=== PATIENT | female | born 1980 | race Caucasian/White ===

== ENCOUNTER 2016-08-17 | Emergency (ER) | payer BC, OTHER ==
--- NOTE | 2016-08-17 12:03 | ED ---
General Adult HPI - General Chief complaint: Back Pain/Injury Stated complaint: LOWER BACK PAIN Time Seen by Provider: 08/17/16 11:50 Source: patient, RN notes reviewed Mode of arrival: ambulatory Limitations: no limitations - History of Present Illness Initial comments: Patient 36-year-old female with significant past medical history for chronic low back pain, who presents emergency room today with chief complaint of an exacerbation of her chronic pain. She does admit to radiation down into the right hip and upper thigh. Denies any saddle anesthesia. Denies any bowel or bladder incontinence retention. Patient states the symptoms are consistent with chronic back pain that she's had in the past. Denies any specific injury or trauma. Does admit that she went back to work this past week. 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 Denies any specific injury. Patient states tried Tylenol at home relief. States she cannot take anti-inflammatories as it causes her throat to close. Patient does admit that she seen a surgeon in the past and they wanted to do surgery on her spine. Patient denies any other complaints or symptoms currently. Patient denies any recent fever, chills, shortness of breath, chest pain, abdominal pain, nausea or vomiting, dysuria or hematuria, constipation or diarrhea, headaches or visual changes, or any other complaints. - Related Data Home Medications Medication Instructions Recorded Confirmed Albuterol Inhaler [Ventolin Hfa 1 - 2 puff INHALATION RT-Q6H PRN 06/20/16 Inhaler] Previous Rx's Medication Instructions Recorded Sulfamethox-Tmp 800-160Mg [Bactrim 2 each PO Q12HR #40 tab 07/10/16 DS 800-160 mg] Cyclobenzaprine [Flexeril] 10 mg PO TID #20 tab 08/17/16 Hydrocodone/Acetaminophen [[place] 1 each PO Q6HR PRN #20 tab 08/17/16 5-325] Allergies Allergy/AdvReac Type Severity Reaction Status Date / Time morphine Allergy Severe Anaphylaxis Verified 08/17/16 11:48 NSAIDS (Non-Steroidal Allergy Severe Anaphylaxis Verified 08/17/16 11:48 Anti-Inflamma metoclopramide HCl Allergy Intermediate Anxiety Verified 08/17/16 11:48 [From Reglan] tramadol Allergy Intermediate Headache/Hi Verified 08/17/16 11:48 ves/Anxiety Review of Systems ROS Statement: Those systems with pertinent positive or pertinent negative responses have been documented in the HPI. ROS Other: All systems not noted in ROS Statement are negative. Past Medical History Past Medical History: Asthma, Osteoarthritis (OA) Additional Past Medical History / Comment(s): Hx chronic BACK PAIN. Hx of L side sciatica. Pt fell down stairs on 04/17/14 at 1800 pm. Did not lose consciousness with fall or hit her head. When she landed she had immediate increased pain in upper low back/thoracic region with pain radiating down L buttock to L toes. Pt states L leg to L foot also feels numb and tingling. History of Any Multi-Drug Resistant Organisms: None Reported Past Surgical History: Appendectomy, Cholecystectomy, Tonsillectomy Additional Past Surgical History / Comment(s): LYMPH BIOPSY 1989 and 1993 in L neck both times negative. RIGHT ARM SURGERY after open compound fx. in 1987. 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 Pt severely ill with this surgery and was on vent for 2 weeks at [facility] in [place]. Past Anesthesia/Blood Transfusion Reactions: Previous Problems w/ Anesthesia Additional Past Anesthesia/Blood Transfusion Reaction / Comment(s): Pt states liver bile duct surgery she was slow to awaken. Past Psychological History: Anxiety, Depression, Panic Disorder Additional Psychological History / Comment(s): Pt has not been diagnosed ADD or ADHD but feels as though she may have these. Smoking Status: Current every day smoker Past Alcohol Use History: None Reported Past Drug Use History: None Reported - Past Family History Mother Family Medical History: Asthma Additional Family Medical History / Comment(s): Born with double club foot. Schizophrenic,IBS. Mother is 59 yrs of age. Father Family Medical History: Cancer, Congestive Heart Failure (CHF), Diabetes Mellitus, Hyperlipidemia, Renal Disease Additional Family Medical History / Comment(s): Father from lung surgery 6 yrs ago at age 56. He had psychiatric disorders-depression/anxiety/ possible suicidal tendencies. He had drug Hx-marijuana/hash/pcp and was an alcoholic. He also had cardiomyopathy. Patient is a mother of 4. General Exam - General Exam Comments Initial Comments: General: The patient is awake and alert, in no distress, and does not appear acutely ill. Eye: Pupils are equal, round and reactive to light, extra-ocular movements are intact. No nystagmus. There is normal conjunctiva bilaterally. No signs of icterus. Ears, nose, mouth and throat: There are moist mucous membranes and no oral lesions. Neck: The neck is supple, there is no tenderness or JVD. Cardiovascular: There is a regular rate and rhythm. No murmur, rub or gallop is appreciated. Respiratory: Lungs are clear to auscultation, respirations are non-labored, breath sounds are equal. No wheezes, stridor, rales, or rhonchi. Musculoskeletal: Normal appearance of the back. No step-off deformity appreciated. Patient does have mild tenderness throughout the lumbar spine. Increased paravertebral tenderness on the right side of the lower lumbar. Strength 5/5. Sensation intact. Pulses equal bilaterally 2+. Neurological: A&O x 3. CN II-XII intact, There are no obvious motor or sensory deficits. Coordination appears grossly intact. Speech is normal. Skin: Skin is warm and dry and no rashes or lesions are noted. Psychiatric: Cooperative, appropriate mood & affect, normal judgment. Limitations: no limitations Course Vital Signs 08/17/16 11:43 Temperature 97.1 F L Pulse Rate 81 Respiratory 18 Rate Blood Pressure 118/68 O2 Sat by Pulse 99 Oximetry Medical Decision Making - Medical Decision Making Patient will be discharged home with short prescription of pain medication and muscle laxer. Advised to follow-up with the family doctor and surgeon. Advised that medications may make her drowsy. Advised to return for any other concerns. Disposition Clinical Impression: Acute exacerbation of chronic low back pain Disposition: HOME SELF-CARE Condition: Good Instructions: Chronic Back Pain (ED) Additional Instructions: Please use medication as discussed. Please be aware that medications may make you drowsy. Please follow-up with family doctor in the next 2 days of symptoms have not improved. Please return to emergency room if the symptoms increase or worsen or for any other concerns. Prescriptions: Cyclobenzaprine [Flexeril] 10 mg PO TID #20 tab Hydrocodone/Acetaminophen [[place] 5-325] 1 each PO Q6HR PRN #20 tab PRN Reason: Pain Time of Disposition: 12:01
== END 2016-08-17 12:15 | disposition home or self-care (01) ==
CPT/HCPCS: 99283

== ENCOUNTER 2016-08-31 23:53 | Emergency (ER) | payer BC, OTHER ==
[2016-09-01 00:07] VITALS: TEMP 98
[2016-09-01] MEDS ORDERED: methylPREDNISolone SOD SUCCI 125 MG/2 ML VIAL IM ONE (01:40)
[2016-09-01] MEDS ORDERED: ORPHENADRINE 30 MG/ML 2 ML VIAL IM STA (01:40)
--- NOTE | 2016-09-01 02:24 | ED ---
Back Pain HPI - General Chief Complaint: Back Pain/Injury Stated Complaint: Lower Back Pain Time Seen by Provider: 09/01/16 01:28 Source: patient, RN notes reviewed Limitations: no limitations - History of Present Illness Initial Comments: is 36-year-old female presenting to the ECG complaint of acute exacerbation of chronic back pain for approximately 3 days. Patient reports that she was seen in the proximal she weeks ago for similar symptoms. Patient reports that a few days that she had a move from her permanent cause a lot of strain on her back. 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 Patient reports that she feels a pressure in her lower back. Patient denies any falls or specific injuries that could've caused her back pain. Patient reports that she has had recent x-rays of the lumbar spine and declines to have them today. She states that she took one [place] earlier today with little relief. She states that she recently got her insurance back and is planning to see a primary care physician. Patient states that she does have some relief with Flexeril and took one earlier today. Patient reports that she has some right leg aching but denies any peripheral paresthesias. She denies any saddle anesthesias. She denies any fever or chills.Patient denies any recent fever, chills, shortness of breath, chest pain, abdominal pain, nausea vomiting, numbness or tingling, dysuria or hematuria, constipation or diarrhea, headaches or visual changes, or any other current symptoms - Related Data Home Medications Medication Instructions Recorded Confirmed Albuterol Inhaler [Ventolin Hfa 1 - 2 puff INHALATION RT-Q6H PRN 06/20/16 Inhaler] Previous Rx's Medication Instructions Recorded Cyclobenzaprine [Flexeril] 10 mg PO TID #20 tab 08/17/16 Cyclobenzaprine [Flexeril] 10 mg PO TID #15 tab 09/01/16 HYDROcodone/APAP 5-325MG [[place] 1 tab PO Q6HR PRN #15 tab 09/01/16 5-325] Allergies Allergy/AdvReac Type Severity Reaction Status Date / Time morphine Allergy Severe Anaphylaxis Verified 09/01/16 00:07 NSAIDS (Non-Steroidal Allergy Severe Anaphylaxis Verified 09/01/16 00:07 Anti-Inflamma metoclopramide HCl Allergy Intermediate Anxiety Verified 09/01/16 00:07 [From Reglan] tramadol Allergy Intermediate Headache/Hi Verified 09/01/16 00:07 ves/Anxiety Review of Systems ROS Statement: Those systems with pertinent positive or pertinent negative responses have been documented in the HPI. ROS Other: All systems not noted in ROS Statement are negative. Past Medical History Past Medical History: Asthma, Osteoarthritis (OA) Additional Past Medical History / Comment(s): Hx chronic BACK PAIN. Hx of L side sciatica. Pt fell down stairs on 04/17/14 at 1800 pm. Did not lose consciousness with fall or hit her head. When she landed she had immediate increased pain in upper low back/thoracic region with pain radiating down L buttock to L toes. Pt states L leg to L foot also feels numb and tingling. History of Any Multi-Drug Resistant Organisms: None Reported Past Surgical History: Appendectomy, Cholecystectomy, Tonsillectomy Additional Past Surgical History / Comment(s): LYMPH BIOPSY 1989 and 1993 in L neck both times negative. RIGHT ARM SURGERY after open compound fx. in 1987. 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 Pt severely ill with this surgery and was on vent for 2 weeks at [facility] in [place]. Past Anesthesia/Blood Transfusion Reactions: Previous Problems w/ Anesthesia Additional Past Anesthesia/Blood Transfusion Reaction / Comment(s): Pt states liver bile duct surgery she was slow to awaken. Past Psychological History: Anxiety, Depression, Panic Disorder Additional Psychological History / Comment(s): Pt has not been diagnosed ADD or ADHD but feels as though she may have these. Smoking Status: Current every day smoker Past Alcohol Use History: None Reported Past Drug Use History: None Reported - Past Family History Mother Family Medical History: Asthma Additional Family Medical History / Comment(s): Born with double club foot. Schizophrenic,IBS. Mother is 59 yrs of age. Father Family Medical History: Cancer, Congestive Heart Failure (CHF), Diabetes Mellitus, Hyperlipidemia, Renal Disease Additional Family Medical History / Comment(s): Father from lung surgery 6 yrs ago at age 56. He had psychiatric disorders-depression/anxiety/ possible suicidal tendencies. He had drug Hx-marijuana/hash/pcp and was an alcoholic. He also had cardiomyopathy. Patient is a mother of 4. General Exam - General Exam Comments Initial Comments: is a pleasant 36-year-old female. She is on appear to be in any acute distress. Limitations: no limitations General appearance: alert, in no apparent distress Head exam: Present: atraumatic, normocephalic, normal inspection Eye exam: Present: normal appearance, PERRL, EOMI. Absent: scleral icterus, conjunctival injection, periorbital swelling ENT exam: Present: normal exam, mucous membranes moist Neck exam: Present: normal inspection. Absent: tenderness, meningismus, lymphadenopathy Respiratory exam: Present: normal lung sounds bilaterally. Absent: respiratory distress, wheezes, rales, rhonchi, stridor Cardiovascular Exam: Present: regular rate, normal rhythm, normal heart sounds. Absent: systolic murmur, diastolic murmur, rubs, gallop, clicks GI/Abdominal exam: Present: soft, normal bowel sounds. Absent: distended, tenderness, guarding, rebound, rigid Extremities exam: Present: normal inspection, full ROM, normal capillary refill. Absent: tenderness, pedal edema, joint swelling, calf tenderness Back exam: Present: normal inspection, full ROM, tenderness (She reports lumbar paraspinal tenderness. Mainly on the right side.), paraspinal tenderness (Rate sided paraspinal tenderness.) Neurological exam: Present: alert, oriented X3, CN II-XII intact Psychiatric exam: Present: normal affect, normal mood Skin exam: Present: warm, dry, intact, normal color. Absent: rash Course Vital Signs 09/01/16 00:05 Temperature 98.0 F Pulse Rate 85 Respiratory 18 Rate Blood Pressure 117/83 O2 Sat by Pulse 99 Oximetry - Reevaluation(s) Reevaluation #1: 09/01/16 02:51 Patient is reevaluated states that she feels a lot of muscle relaxer starting to work. Patient reports that her back pain starting to diminish. Medical Decision Making - Medical Decision Making Patient is a 36 [place] of present to the with chief complaint of acute onset of chronic back pain. Patient was given IM Flexeril and Solu-Medrol. After the IM injection she did notice a lump in some pain. The nurse massaged and the pain has diminished after applying ice on the arm as well. Patient reports that her back pain is starting to subside after the muscle relaxer. Patient has been advised to follow-up with a primary care physician and orthopedic physician. Patient will be discharged with a prescription for [place] and Flexeril. Advised patient to apply heat over the lower back. Given the patient has had a recent lumbar spine x-rays and denies any specific injury or falls patient will not be receiving x-rays today she is declining them. Patient understands treatment plan will comply. Return parameters were discussed. Patient also be given a referral for data integrity specialist a specialized back pain, Dr. Kennedy. Disposition Clinical Impression: Acute exacerbation of chronic low back pain Disposition: HOME SELF-CARE Condition: Good Instructions: Acute Low Back Pain (ED) Additional Instructions: Patient instructed to rest and to apply heat over the back. Patient instructed to follow-up with her primary care physician as well as a back specialist in regards to pain. Patient lives to return the EC if any alarming signs or symptoms occur. Prescriptions: Cyclobenzaprine [Flexeril] 10 mg PO TID #15 tab HYDROcodone/APAP 5-325MG [[place] 5-325] 1 tab PO Q6HR PRN #15 tab PRN Reason: Pain Referrals: Braden Lynch MD [REFERRING] - 1-2 days Mei Kennedy DO [Doctor of Osteopathic Medicine] - 1-2 days Time of Disposition: 02:22
[2016-09-01] MEDS ORDERED: HYDROcodone/APAP 10-325MG 1 EACH TAB PO ONE (02:41)
[2016-09-01 03:09] VITALS: BP 100/63; PULSE 65; RESP 16
== END 2016-09-01 03:08 | disposition home or self-care (01) ==
LOC: EC 23:53
DX: M54.5 Low back pain (principal); G89.29 Other chronic pain; F17.200 Nicotine dependence, unspecified, uncomplicated; Z88.5 Allergy status to narcotic agent; Z88.8 Allergy status to other drugs, medicaments and biological substances; Z79.899 Other long term (current) drug therapy
CPT/HCPCS: 99282; 96372 ×2; J2360; J2930